=== PATIENT | female | born 1960 | race Caucasian/White ===

== ENCOUNTER → 2017-02-09 | Outpatient (CLI) | payer OTHER, BC ==
[2017-02-09] VITALS (10 sets, daily range): BP systolic 137–226; BP diastolic 62–100
[~2017-02-09] MED LIST: ASPIR 8181 MG PO; CELEXA20 MG PO; DOXEPIN HCL150 MG PO; LEVOTHYROXINE0.05 MG PO; LIORESAL 10 MG10 MG PO; METHOTREXATE 22.5 MG PO; TRAZODONE HCL100 MG PO; VITAMIN D 5050000 I1 PO
== END ==
LOC: CAT 02:01
DX: M71.38 Other bursal cyst, other site (principal)

== ENCOUNTER → 2019-07-31 | Outpatient (CLI) | payer OTHER, BC ==
[~2019-07-31] MED LIST changes: +BAYER CHEWABLE81 MG PO; +LASIX 20 MG TAB20 MG PO
[2019-07-31 11:12] VITALS: BP 174/78
[2019-07-31 11:15] VITALS: BP 165/66
[2019-07-31 11:20] VITALS: BP 156/69
[2019-07-31 11:25] VITALS: BP 146/71
[2019-07-31 11:31] VITALS: BP 146/66
[2019-07-31 11:34] VITALS: BP 134/74
== END ==
LOC: CAT 08:39 → MRI 15:12
DX: M71.38 Other bursal cyst, other site (principal); M54.16 Radiculopathy, lumbar region; I10 Essential (primary) hypertension; E78.5 Hyperlipidemia, unspecified; K21.9 Gastro-esophageal reflux disease without esophagitis; E03.9 Hypothyroidism, unspecified; F32.9 Major depressive disorder, single episode, unspecified; F41.9 Anxiety disorder, unspecified; M79.7 Fibromyalgia; Z98.890 Other specified postprocedural states; Z90.710 Acquired absence of both cervix and uterus; Z90.49 Acquired absence of other specified parts of digestive tract; Z79.82 Long term (current) use of aspirin; Z79.899 Other long term (current) drug therapy